=== PATIENT | male | born 1950 | race Caucasian/White ===

== ENCOUNTER 2019-05-15 19:25 | Observation (INO) | payer MEDICARE ==
--- NOTE | 2019-05-15 20:31 | RADIOLOGY REPORT (SQ) ---
EXAM DESCRIPTION: XR CHEST 1 VIEW COMPLETED DATE/TME: 05/15/2019 00:00 CLINICAL HISTORY: 68 years, Male, altered mental status COMPARISON: None. NUMBER OF VIEWS: Single TECHNIQUE: LIMITATIONS: None. FINDINGS: Cardiomediastinal silhouette is of normal size. Mild marcos fullness presumed vascular. The lungs are clear. No effusion. No pneumothorax. Right humeral postsurgical change IMPRESSION: No active intrathoracic disease copyright 2010 [employer]- All Rights Reserved
--- NOTE | 2019-05-15 20:32 | RADIOLOGY REPORT (SQ) ---
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 COMPARISON: None. TECHNIQUE: CT scan of the brain without IV contrast. This exam was performed according to our departmental dose-optimization program, which includes automated exposure control, adjustment of the mA and/or kV according to patient size and/or use of iterative reconstruction technique. FINDINGS: There is an area of encephalomalacia in the left occipital lobe and left cerebral hemisphere. No evidence of acute infarction, intracranial hemorrhage, extra-axial fluid collection, or midline shift. No air-fluid levels are seen in the paranasal sinuses to suggest acute sinusitis. No depressed skull fracture. IMPRESSION: No acute intracranial findings are seen. Please note that MRI is more sensitive for the evaluation of early infarction, and may be performed if there is high clinical concern.
[2019-05-15 20:48] LABS: ABSOLUTE BASOPHILS # (AUTO) 0.1 10^3/uL (0.0-0.2); ABSOLUTE EOSINOPHILS # (AUTO) 0.2 10^3/uL (0.0-0.6); ABSOLUTE LYMPHOCYTES (AUTO) 1.4 10^3/uL (0.5-4.7); ABSOLUTE MONOCYTES (AUTO) 0.6 10^3/uL (0.1-1.4); ABSOLUTE NEUT (AUTO) 4.9 10^3/uL (1.7-8.2); BASOPHILS % (AUTO) 1.1 % (0-2); EOSINOPHILS % (AUTO) 2.3 % (0-6); HEMATOCRIT 28.2 % (37.9-51.0); HEMOGLOBIN 9.4 g/dL (13.5-17.0); LYMPHOCYTES % (AUTO) 19.8 % (13-45); MEAN CORPUSCULAR HGB CONC 33.5 g/dL (32.0-36.0); MEAN CORPUSCULAR VOLUME 87 fl (80-97); PLATELET COUNT 305 10^3/uL (150-450); RED BLOOD COUNT 3.25 10^6/uL (4.35-5.55); RED CELL DISTRIBUTION WIDTH 14.3 % (11.5-14.0); SEGMENTED NEUTROPHILS % (AUTO) 68.8 % (42-78); TOTAL CELLS COUNTED % (AUTO) 100 %; WHITE BLOOD COUNT 7.2 10^3/uL (4.0-10.5)
[2019-05-15 20:54] LABS: INTERNATIONAL RATION (INR) 1.07; PROTHROMBIN TIME 13.9 SEC (11.4-15.4)
[2019-05-15 21:06] LABS: VENOUS BLOOD BASE EXCESS -2.1 mmol/L; VENOUS BLOOD PH 7.34 (7.30-7.42)
[2019-05-15 21:13] LABS: ALBUMIN 3.8 g/dL (3.5-5.0); ALKALINE PHOSPHATASE 112 U/L (38-126); ANION GAP 14 (5-19); ASPARTATE AMINO TRANSFERASE 21 U/L (17-59); BILIRUBIN,DIRECT 0.2 mg/dL (0.0-0.4); BILIRUBIN,TOTAL 0.2 mg/dL (0.2-1.3); BLOOD UREA NITROGEN 21 mg/dL (7-20); CALCIUM 9.6 mg/dL (8.4-10.2); CARBON DIOXIDE 23 mmol/L (22-30); CHLORIDE 102 mmol/L (98-107); GLUCOSE 114 mg/dL (75-110); POTASSIUM 4.1 mmol/L (3.6-5.0); TOTAL PROTEIN 6.8 g/dL (6.3-8.2)
[2019-05-15 21:27] LABS: APPEARANCE,URINE SLIGHTLY-CLOUDY; BILIRUBIN,URINE NEGATIVE (NEGATIVE); COLOR,URINE YELLOW; GLUCOSE, URINE NEGATIVE (NEGATIVE); KETONES,URINE NEGATIVE (NEGATIVE); PROTEIN,URINE 100 mg/dL (NEGATIVE); URINE SPECIFIC GRAVITY 1.017; UROBILINOGEN,URINE NEGATIVE mg/dL (<2.0)
[2019-05-15] MEDS ORDERED: NORMAL SALINE 1000 ML 1,000 ML IV ONE (23:51)
[2019-05-16] MEDS: NORMAL SALINE 1000 ML 1,000 ML IV PRN ×2 (00:29→00:30)
--- NOTE | 2019-05-16 03:30 | ER Document Report ---
Entered by JOAQUIN YEE SCRIBE 05/15/19 [id number] Acting as scribe for:ESA SHAH MD ED General - General Chief Complaint: General Weakness Stated Complaint: LOWER EXTREMITY WEAKNESS Time Seen by Provider: 05/15/19 20:59 Primary Care Provider: RIGO WELDON PA-C [Primary Care Provider] - Follow up as needed Information source: Patient, Relative Notes: 68-year-old male reports to the emergency department by EMS with generalized weakness. Patient recalled today when he was taking his medication he noticed a pill on the floor. When he bent over to pickup driver the pill, he lost his balence and fell over. Patient reports no injury, loss of consciousness due to the fall. Patient reports that this is when he started to "feel groggy".Patient states he took pill that was on the floor. Patient's relative did not see this incident but patient told her about it after the fall happened. Patient's relative stated that about 4 hours prior to arrival, she noticed that patient was more "fidgety" and did not seem like himself. Relative stated that patient was worsening and could not walk, form a sentence and had slurred speech. Relative said that patient's blood sugar was 287 when checked and he administered 5 units of insulin. Relative reported that by the time EMS arrived, patients blood sugar was at 127. Patient stated that when he was leaving his home to come to the ED, he saw "a dog run off" in the corner of his eye. Relative also reported that patient said that he saw a "4 foot wall in front of him" when there was not. Patient denies headache. TRAVEL OUTSIDE OF THE [place] IN LAST 30 DAYS: No - Related Data Allergies/Adverse Reactions: Penicillins Allergy (Verified 05/15/19 19:47) Past Medical History - General Information source: Patient, Relative - Social History Smoking Status: Current Every Day Smoker Cigarette use (# per day): Yes Chew tobacco use (# tins/day): No Frequency of alcohol use: Rare Drug Abuse: None Lives with: Family Family History: Reviewed & Not Pertinent Patient has suicidal ideation: No Patient has homicidal ideation: No - Past Medical History Cardiac Medical History: Reports: Hx Hypercholesterolemia, Hx Hypertension Endocrine Medical History: Reports: Hx Diabetes Mellitus Type 1 Psychiatric Medical History: Reports: Hx Depression Surgical Hx: Negative Review of Systems - Review of Systems Constitutional: See HPI, Weakness EENT: No symptoms reported Cardiovascular: No symptoms reported Respiratory: No symptoms reported Gastrointestinal: No symptoms reported Genitourinary: No symptoms reported Male Genitourinary: No symptoms reported Musculoskeletal: No symptoms reported Skin: No symptoms reported Hematologic/Lymphatic: No symptoms reported Neurological/Psychological: See HPI, Hallucinations, Tremor. denies: Headaches -: Yes All other systems reviewed and negative Physical Exam - Vital signs Vitals: Temp Pulse Resp BP Pulse Ox 98.2 F 97 26 H 93/64 L 95 05/15/19 19:25 05/15/19 19:25 05/15/19 19:25 05/15/19 19:25 05/15/19 19:25 - Notes Notes: Physical Exam: General: Alert, appears well. HEENT: Normocephalic. Atraumatic. PERRL. Extraocular movements intact. Oropharynx clear. Diminished gag reflex. Neck: Supple. Non-tender. Respiratory: No respiratory distress. Clear and equal breath sounds bilaterally. Cardiovascular: Regular rate and rhythm. Abdominal: Normal Inspection. Non-tender. No distension. Normal Bowel Sounds. Back: No gross abnormalities. Extremities: Moves all four extremities. Upper extremities: Normal inspection. Normal ROM. Lower extremities: Normal inspection. No edema. Normal ROM. Neurological: Normal cognition. AAOx4. Normal speech. Psychological: Normal affect. Normal Mood. Skin: Warm. Dry. Normal color. Course - Re-evaluation Re-evalutation: 05/16/19 03:20 Patient resting comfortably not showing any signs of distress. Patient sleeping in room at this time. Patient is easily aroused and speech is clear oriented to place and time patient reports that he feels fine at this time. 05/16/19 03:21 Patient presented with an elevated lactic acid of 4.0 currently the trend of this elevated lactic acid has decreased down to 2.8. Another lab is pending in the lab as we speak. Once his lactic acid is down to 2.0 patient will be discharged home patient is severely dehydrated and I think suffered some acute renal insult as a result with his creatinine up to 1.74. A repeat creatinine is also pending at this time. - Vital Signs Vital signs: Temp Pulse Resp BP Pulse Ox 98.2 F 94 21 H 118/68 97 05/15/19 19:25 05/15/19 20:11 05/15/19 20:30 05/15/19 20:30 05/15/19 20:30 - Laboratory Result Diagrams: 05/15/19 20:35 05/15/19 20:35 Laboratory results interpreted by me: 05/15/19 05/15/19 05/15/19 20:01 20:35 20:35 RBC 3.25 L Hgb 9.4 L Hct 28.2 L RDW 14.3 H BUN Creatinine Est GFR ( Amer) Est GFR (MDRD) Non-Af Glucose POC Glucose 144 H Lactic Acid 4.0 H Urine Protein Leukocyte Esterase Rfl 05/15/19 05/15/19 05/15/19 20:35 21:00 22:28 RBC Hgb Hct RDW BUN 21 H Creatinine 1.74 H Est GFR ( Amer) 48 L Est GFR (MDRD) Non-Af 39 L Glucose 114 H POC Glucose Lactic Acid 3.1 H Urine Protein 100 H Leukocyte Esterase Rfl TRACE H 05/15/19 23:00 RBC Hgb Hct RDW BUN Creatinine Est GFR ( Amer) Est GFR (MDRD) Non-Af Glucose POC Glucose Lactic Acid 2.8 H Urine Protein Leukocyte Esterase Rfl - EKG Interpretation by Me Additional EKG results interpreted by me: 05/16/19 03:22 Twelve-lead EKG done 05/15/20192006 shows normal sinus rhythm rate of 92 no acute changes Discharge - Discharge Clinical Impression: Acute alteration in mental status, Acute kidney injury, Dehydration Condition: Stable Disposition: HOME, SELF-CARE Additional Instructions: Dehydration Dehydration can result from vomiting or diarrhea, fever, or decreased intake of fluids. If severe, hospitalization and intravenous fluids may be required. Most cases are treated at home with fluids by mouth. For the next 24 hours, drink lots of clear fluids. In mild cases, this can be soda pop or sports drinks. For more severe dehydration, the doctor may recommend special fluids such as Pedialyte or Lytren. Try to get three liters (3 quarts) of fluid per day. If vomiting occurs, continue to drink the fluids frequently (every 15 to 20 minutes), but in small amounts (one or two ounces). Depending on the type of dehydration, the doctor may prescribe antinausea medicine or potassium replacements. Call the doctor or return for re-examination if you become progressively weak, vomit repeatedly, or have other new symptoms. Altered Mental Status An altered mental status is a change in the normal functioning of the brain. This alteration of function can range from minor decreased brain function with some forgetfulness and confusion to complete loss of consciousness and coma. There are many possible causes of an altered mental status and include brain injuries such as trauma or strokes, problems with oxygen supply to the brain, fever and infections of the brain and/or elsewhere in the body, metabolic abnormalities such as low or high blood sugar, overdoses or excessive medication ingestion, and mental and psychiatric illnesses. Sometimes the altered mental status resolves and a definite cause is not determined. If a cause for your altered mental status was found, it has likely been corrected. Your evaluation has not shown any condition that requires that you be admitted to the hospital. It is believed that you are safe to leave and return to your home. If you have a return of your symptoms, you should return for re-evaluation. Today you had a change in mental status with may be related to the fact that you took an extra pill that had fallen on the floor. Such medications such as lorazepam can cause 1 to have an altered mental status and balance changes. Your symptoms seem to improved while in the emergency department today and you have currently oriented to person place and time and not showing any neurological problems at this time. Currently you have been dehydrated to a great degree in the past 24 hours and your urine and kidney function describes that with an elevated creatinine. And your urine was quite concentrated on arrival. You have received IV fluids during your hospital stay in the emergency department and a repeat study of your kidney function is pending at the time of this dictation. I do not believe you please follow-up with your primary care physician for further evaluation. Suffered a stroke today Referrals: RIGO WELDON PA-C [Primary Care Provider] - Follow up as needed I personally performed the services described in the documentation, reviewed and edited the documentation which was dictated to the scribe in my presence, and it accurately records my words and actions.
[2019-05-16 03:39] LABS: ALBUMIN 3.3 g/dL (3.5-5.0); ALKALINE PHOSPHATASE 104 U/L (38-126); ANION GAP 7 (5-19); ASPARTATE AMINO TRANSFERASE 22 U/L (17-59); BILIRUBIN,DIRECT 0.1 mg/dL (0.0-0.4); BILIRUBIN,TOTAL 0.2 mg/dL (0.2-1.3); BLOOD UREA NITROGEN 17 mg/dL (7-20); CALCIUM 8.4 mg/dL (8.4-10.2); CARBON DIOXIDE 22 mmol/L (22-30); CHLORIDE 113 mmol/L (98-107); GLUCOSE 86 mg/dL (75-110); POTASSIUM 4.2 mmol/L (3.6-5.0); TOTAL PROTEIN 5.8 g/dL (6.3-8.2)
[2019-05-16] MEDS ORDERED: MAG HYDROX/AL HYDROX/SIMETH SUSP 30 ML UDCUP PO PRN (04:27)
[2019-05-16] MEDS ORDERED: PROMETHAZINE HCL INJ 25 MG/1 ML VIAL IV PRN (04:27)
[2019-05-16] MEDS ORDERED: RINGERS SOLUTION,LACTATED 1,000 ML IV PRN ×2 (04:27→12:30)
[2019-05-16] MEDS ORDERED: MAGNESIUM HYDROXIDE SUSP 30 ML UDCUP PO PRN (04:27)
[2019-05-16] MEDS ORDERED: ACETAMINOPHEN 325 MG TABLET PO PRN (04:31)
[2019-05-16] MEDS ORDERED: LORAZEPAM INJ 2 MG/1 ML VIAL IV PRN ×2 (04:31→09:49)
[2019-05-16] MEDS ORDERED: SCOPOLAMINE HYDROBROMIDE 1.5 MG PATCH.TD72 TD ONE (04:31)
[2019-05-16] MEDS ORDERED: METOPROLOL TARTRATE PF/INJ 5 MG/5 ML SDV IV PRN (04:31)
[2019-05-16] MEDS ORDERED: DEXTROSE 50%-WATER 25 GM/50 ML DISP.SYRIN IV PRN ×2 (04:36)
[2019-05-16] MEDS ORDERED: GLUCAGON,HUMAN RECOMB 1 MG INJ IM PRN (04:36)
[2019-05-16] MEDS ORDERED: DEXTROSE 40% GEL 15 GM TUBE PO PRN ×2 (04:36)
[2019-05-16] MEDS ORDERED: BUPROPION HCL 100 MG TABLET ONE (05:43)
[2019-05-16] MEDS: PANTOPRAZOLE SODIUM 40 MG TABLET.DR PO SCH (05:44)
[2019-05-16] MEDS: HEPARIN SOD (PORCINE) 5,000 UNIT/ML 1 ML VIAL SUBCUT SCH ×3 (05:44→21:57)
[2019-05-16] MEDS: GABAPENTIN 300 MG CAPSULE PO SCH ×3 (05:44→21:58)
[2019-05-16] MEDS ORDERED: SCOPOLAMINE HYDROBROMIDE 1.5 MG PATCH.TD72 ONE (05:45)
[2019-05-16] MEDS: BUPROPION HCL 100 MG TABLET PO SCH ×3 (05:50→21:57)
--- NOTE | 2019-05-16 07:09 | PDOC H&P ---
History of Present Illness Admission Date/PCP: 05/16/2019 04:06 RIGO WELDON PA-C Patient complains of: Altered mental status History of Present Illness: DIOGO DE LA ROSA is a 68 year old male who presents the emergency room via EMS with altered mental status. Patient was at home and was taking his medication as usual on the morning of 05/15/2019 when he apparently dropped a pill and as he bent over to pick it up he lost his balance resulting in a fall without apparent injury or loss of consciousness. Over the course of the next several hours the patient complained only of feeling groggy. His family noticed that he was not acting like himself becoming distracted, having difficulty walking, slurring his speech and having difficulty forming sentences. He also apparently saw a dog t hat was not there and a wall in front of him that was not there. In the emergency room he was found to have a negative CT scan of the head but was noted to have acute kidney injury which responded well to IV fluids. He has lactic acid was also initially elevated but had returned to a normal value with rehydration. Patient's mental status was noted to be at his baseline however he continued to feel "wobbly" when he sat up or stood up. He was subsequently admitted to the hospital on observation status for further evaluation and treatment. Past Medical History Cardiac Medical History: Reports: Hyperlipidema, Hypertension, Peripheral Vascular Disease Denies: Atrial Fibrillation, Congestive Heart Failure, Coronary Artery Disease, Myocardial Infarction Pulmonary Medical History: Denies: Asthma, Chronic Obstructive Pulmonary Disease (COPD) EENT Medical History: Denies: Cataracts, Ears - Hearing aids Neurological Medical History: Denies: Hemorrhagic CVA, Ischemic CVA, Seizures Endocrine Medical History: Reports: Diabetes Mellitus Type 2 Denies: Diabetes Mellitus Type 1, Hyperthyroidism, Hypothyroidism Renal/ Medical History: Denies: Chronic Kidney Disease, Nephrolithiasis Malignancy Medical History: Reports: None GI Medical History: Denies: Cirrhosis, Crohn's Disease, Gastroesophageal Reflux Disease, Hepatitis, Peptic Ulcer Disease, Ulcerative Colitis Musculoskeltal Medical History: Denies: Arthritis, Gout Skin Medical History: Denies: Eczema, Psoriasis Psychiatric Medical History: Reports: Depression, Tobacco Dependency Denies: Alcohol Dependency, Substance Abuse Traumatic Medical History: Reports: None Hematology: Denies: Anemia, Bleeding Tendencies Infectious Medical History: Reports: None Social History Information Source: Patient Lives with: Family Smoking Status: Current Every Day Smoker Electronic Cigarette use?: No Frequency of Alcohol Use: None Hx Recreational Drug Use: No Drugs: None Hx Prescription Drug Abuse: No - Advance Directive Resuscitation Status: Full Code Surrogate healthcare decision maker:: Mabel Solis Family History Family History: denies: CAD, DM, Hypertension, Malignancy Parental Family History Reviewed: Yes Children Family History Reviewed: No Sibling(s) Family History Reviewed.: Yes Medication/Allergy Home Medications: Aspirin [Aspirin 325 mg Tablet] 325 mg PO DAILY 05/15/19 Atorvastatin Calcium [Lipitor 40 mg Tablet] 40 mg PO QHS 05/15/19 Bupropion HCl [Bupropion Xl] 300 mg PO DAILY 05/15/19 Cilostazol [Pletal 100 Mg Tablet] 100 mg PO BID 05/15/19 Gabapentin [Neurontin 300 mg Capsule] 300 mg PO Q8 05/15/19 Glipizide [Glucotrol] 10 mg PO BID 05/15/19 Lorazepam [Ativan 1 mg Tablet] 2 mg PO QHS 05/15/19 Losartan Potassium 100 mg PO DAILY 05/15/19 Metformin HCl 1,000 mg PO BID 05/15/19 Paroxetine HCl [Paxil] 20 mg PO BID 05/15/19 Sitagliptin Phosphate [Januvia 50 mg Tablet] 100 mg PO DAILY 05/15/19 Allergies/Adverse Reactions: Penicillins Allergy (Verified 05/15/19 19:47) Review of Systems Constitutional: ABSENT: chills, fever(s) Eyes: ABSENT: visual disturbances, other - Eye pain Ears: ABSENT: hearing changes, other - Ear pain Nose, Mouth, and Throat: ABSENT: mouth pain, sore throat Cardiovascular: ABSENT: chest pain, palpitations Respiratory: ABSENT: cough, dyspnea Gastrointestinal: ABSENT: abdominal pain, constipation, diarrhea, nausea, vomiting Genitourinary: ABSENT: dysuria, hematuria Musculoskeletal: ABSENT: back pain, joint swelling Integumentary: ABSENT: pruritus, rash Neurological: PRESENT: as per HPI, abnormal gait, abnormal speech, confusion, lack of coordination. ABSENT: convulsions, focal weakness, memory loss, syncope Psychiatric: ABSENT: anxiety, depression Endocrine: ABSENT: cold intolerance, heat intolerance, polydipsia, polyphagia, polyuria Hematologic/Lymphatic: ABSENT: easy bleeding, easy bruising Allergic/Immunologic: ABSENT: seasonal rhinorrhea Physical Exam Vital Signs: Temp Pulse Resp BP Pulse Ox 98.2 F 94 21 H 118/68 97 05/15/19 19:25 05/15/19 20:11 05/15/19 20:30 05/15/19 20:30 05/15/19 20:30 Intake & Output 05/14/19 05/15/19 05/16/19 23:59 23:59 23:59 Intake Total 1017 Balance 1017 Weight 74.7 kg General appearance: PRESENT: no acute distress, cooperative Head exam: PRESENT: atraumatic, normocephalic Eye exam: PRESENT: conjunctiva pink, nystagmus - Lateral nystagmus. ABSENT: conjunctival injection, scleral icterus Ear exam: PRESENT: normal external ear exam. ABSENT: bleeding, drainage Mouth exam: PRESENT: dry mucosa, neck supple Neck exam: ABSENT: thyromegaly, tracheal deviation Respiratory exam: PRESENT: clear to auscultation abdulaziz, symmetrical, unlabored Cardiovascular exam: PRESENT: RRR. ABSENT: clicks, gallop, rubs Pulses: PRESENT: normal radial pulses, normal dorsalis pedis pul Vascular exam: PRESENT: normal capillary refill. ABSENT: pallor GI/Abdominal exam: PRESENT: normal bowel sounds, soft Rectal exam: PRESENT: deferred Extremities exam: ABSENT: joint swelling, pedal edema Musculoskeletal exam: ABSENT: deformity, dislocation Neurological exam: PRESENT: alert, oriented to person, oriented to place, oriented to time, oriented to situation, other - Lateral nystagmus noted on visual testing Psychiatric exam: PRESENT: appropriate affect, normal mood Skin exam: PRESENT: dry, intact, warm. ABSENT: jaundice, rash, urticaria Results Laboratory Results: 05/15/19 20:35 05/16/19 02:50 05/15/19 05/15/19 05/15/19 20:35 20:35 20:35 WBC 7.2 RBC 3.25 L Hgb 9.4 L Hct 28.2 L MCV 87 MCH 29.0 MCHC 33.5 RDW 14.3 H Plt Count 305 Seg Neutrophils % 68.8 VBG pH VBG pCO2 VBG HCO3 VBG Base Excess Sodium 138.8 Potassium 4.1 Chloride 102 Carbon Dioxide 23 Anion Gap 14 BUN 21 H Creatinine 1.74 H Est GFR ( Amer) 48 L Glucose 114 H Lactic Acid 4.0 H Calcium 9.6 Total Bilirubin 0.2 AST 21 Alkaline Phosphatase 112 Total Protein 6.8 Albumin 3.8 Urine Color Urine Appearance Urine pH Ur Specific [place] Urine Protein Urine Glucose (UA) Urine Ketones Urine Blood Urine RBC (Auto) 05/15/19 05/15/19 05/15/19 20:35 21:00 22:28 WBC RBC Hgb Hct MCV MCH MCHC RDW Plt Count Seg Neutrophils % VBG pH 7.34 VBG pCO2 46.0 VBG HCO3 24.0 VBG Base Excess -2.1 Sodium Potassium Chloride Carbon Dioxide Anion Gap BUN Creatinine Est GFR ( Amer) Glucose Lactic Acid 3.1 H Calcium Total Bilirubin AST Alkaline Phosphatase Total Protein Albumin Urine Color YELLOW Urine Appearance SLIGHTLY-CLOUDY Urine pH 5.0 Ur Specific [place] 1.017 Urine Protein 100 H Urine Glucose (UA) NEGATIVE Urine Ketones NEGATIVE Urine Blood NEGATIVE Urine RBC (Auto) 3 05/15/19 05/16/19 05/16/19 23:00 02:50 02:50 WBC RBC Hgb Hct MCV MCH MCHC RDW Plt Count Seg Neutrophils % VBG pH VBG pCO2 VBG HCO3 VBG Base Excess Sodium 141.5 Potassium 4.2 Chloride 113 H Carbon Dioxide 22 Anion Gap 7 BUN 17 Creatinine 1.25 Est GFR ( Amer) > 60 Glucose 86 Lactic Acid 2.8 H 2.1 Calcium 8.4 Total Bilirubin 0.2 AST 22 Alkaline Phosphatase 104 Total Protein 5.8 L Albumin 3.3 L Urine Color Urine Appearance Urine pH Ur Specific [place] Urine Protein Urine Glucose (UA) Urine Ketones Urine Blood Urine RBC (Auto) Impressions: Chest X-Ray 05/15/19 00:00 IMPRESSION: No active intrathoracic disease copyright 2011 [employer]- All Rights Reserved Head CT 05/15/19 00:00 IMPRESSION: No acute intracranial findings are seen. Please note that MRI is more sensitive for the evaluation of early infarction, and may be performed if there is high clinical concern. Assessment and Plan - Diagnosis (1) Acute alteration in mental status Is this a current diagnosis for this admission?: Yes (2) Acute labyrinthitis Qualifiers: Laterality: unspecified laterality Qualified Code(s): H83.09 - Labyrinthi tis, unspecified ear Is this a current diagnosis for this admission?: Yes (3) Acute kidney injury Is this a current diagnosis for this admission?: Yes (4) Diabetes mellitus type 2 in nonobese Is this a current diagnosis for this admission?: Yes (5) Hypertension Qualifiers: Hypertension type: essential hypertension Qualified Code(s): I10 - Essential (primary) hypertension Is this a current diagnosis for this admission?: Yes (6) Hyperlipidemia Qualifiers: Hyperlipidemia type: unspecified Qualified Code(s): E78.5 - Hyperlipidemia, unspecified Is this a current diagnosis for this admission?: Yes (7) Tobacco dependence Is this a current diagnosis for this admission?: Yes - Plan Summary Summary: Patient will be admitted to the medical floor on observation status where he received routine supportive and symptomatic cares. He will be continued on IV fluids over the next 12 to 24 hours. He will have an MRI of his brain to evaluate for possible stroke. Serial laboratory assessments will be obtained including CBC, metabolic profile and magnesium levels as appropriate for reassessments. Before meals and at bedtime Accu-Cheks will be obtained with sliding scale insulin for hyperglycemia and a hypoglycemic protocol in place. Hemoglobin A1c will be assessed. Neurochecks will be performed every 4 hours. Patient received Ativan 0.5 mg IV every 4 hours as needed for anxiety. Smoking cessation is advised and counseled briefly at the bedside. - Time Time Spent with patient: 15-24 minutes Smoking Cessation Education: 3 to 10 minutes Medications reviewed and adjusted accordingly: Yes - Inpatient Certification Based on my medical assessment, after consideration of the patient's comorbidities, presenting symptoms, or acuity I expect that the services needed warrant INPATIENT care.: No I certify that my determination is in accordance with my understanding of Medicare's requirements for reasonable and necessary INPATIENT services [42 CFR 412.3e].: No Medical Necessity: Need For IV Fluids, Need for Neurological Checks
[2019-05-16] MEDS: INSULIN LISPRO 100 UNIT/ML 3 ML VIAL SUBCUT SCH ×4 (07:46→22:54)
[2019-05-16] MEDS: METFORMIN HCL 500 MG TABLET PO SCH ×2 (08:48→18:06)
[2019-05-16] MEDS: GLIPIZIDE 10 MG TABLET PO SCH ×2 (09:43→18:07)
[2019-05-16] MEDS: PAROXETINE HCL 20 MG TABLET PO SCH ×2 (09:43→18:14)
[2019-05-16] MEDS: LOSARTAN POTASSIUM 50 MG TABLET PO SCH (09:43)
[2019-05-16] MEDS: DOCUSATE SODIUM 100 MG CAPSULE PO SCH ×2 (09:43→18:29)
[2019-05-16] MEDS: SITAGLIPTIN PHOSPHATE 50 MG TABLET PO SCH (09:43)
[2019-05-16] MEDS: ASPIRIN 325 MG TABLET PO SCH (09:43)
[2019-05-16] MEDS: CILOSTAZOL 100 MG TABLET PO SCH ×2 (09:59→18:07)
--- NOTE | 2019-05-16 12:07 | RADIOLOGY REPORT (SQ) ---
EXAM DESCRIPTION: MRI HEAD WITHOUT COMPLETED DATE/TIME: 05/16/2019 11:32 am REASON FOR STUDY: Acute difficulty with coordination COMPARISON: CT from yesterday. TECHNIQUE: Multiplanar imaging includes non-contrasted T1, T2, FLAIR, and diffusion with ADC map seq uences. Images stored on PACS. LIMITATIONS: Most of the sequences are limited by motion. This is up to moderate on many of the yasmeen ges which limits. FINDINGS: ANATOMY: No anomalies. Normal vascular flow voids. Pituitary fossa normal. CSF SPACES: Mild atrophy may be present. No gross extra-axial hemorrhage or mass. CEREBRUM: Encephalomalacia in the left occipital lobe. No gross parenchymal hemorrhage. POSTERIOR FOSSA: Encephalomalacia in the left kishore cerebellum. IAC's and mastoid air cells look norm al. DIFFUSION IMAGING: Negative for acute or sub-acute infarction. ORBITS: No masses. Globes normal. PARANASAL SINUSES: No fluid levels. Mucosa normal. OTHER: No other significant finding. IMPRESSION: 1. Chronic appearing changes. 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 2. No acute infarct or other acute abnormality allowing for limiting motion. EVIDENCE OF ACUTE STROKE: NO. TECHNICAL DOCUMENTATION: JOB ID: [id number] 2010 [employer]- All Rights Reserved Reading location - IP/workstation name: [email or web address]
[2019-05-16] MEDS: HYDRALAZINE HCL INJ/PF 20 MG/1 ML SDV IV PRN (15:51)
[2019-05-16] MEDS: ATORVASTATIN CALCIUM 40 MG TABLET PO SCH (21:57)
[2019-05-16] MEDS: LORAZEPAM 1 MG TABLET PO SCH (21:57)
--- NOTE | 2019-05-16 22:39 | EKG REPORT ---
SEVERITY:- NORMAL ECG - SINUS RHYTHM : Confirmed by: Mary Carrillo 16-May-2019 22:38:21
[2019-05-17] MEDS: HYDRALAZINE HCL INJ/PF 20 MG/1 ML SDV IV PRN (01:44)
[2019-05-17 06:21] LABS: HEMATOCRIT 27.9 % (37.9-51.0); HEMOGLOBIN 9.3 g/dL (13.5-17.0); MEAN CORPUSCULAR HEMOGLOBIN 28.8 pg (27.0-33.4); MEAN CORPUSCULAR HGB CONC 33.5 g/dL (32.0-36.0); MEAN CORPUSCULAR VOLUME 86 fl (80-97); PLATELET COUNT 311 10^3/uL (150-450); RED BLOOD COUNT 3.24 10^6/uL (4.35-5.55); RED CELL DISTRIBUTION WIDTH 14.4 % (11.5-14.0); WHITE BLOOD COUNT 7.3 10^3/uL (4.0-10.5)
[2019-05-17 06:26] LABS: BLOOD UREA NITROGEN 14 mg/dL (7-20); CALCIUM 8.6 mg/dL (8.4-10.2); GLUCOSE 89 mg/dL (75-110)
[2019-05-17 06:27] LABS: ANION GAP 9 (5-19); CARBON DIOXIDE 24 mmol/L (22-30); CHLORIDE 107 mmol/L (98-107); CHOLESTEROL 137.99 mg/dL (0-200); DIRECT LDL 57 mg/dL (<100); TRIGLYCERIDES 194 mg/dL (<150); VLDL CHOLESTEROL 38.8 mg/dL (10-31)
[2019-05-17] MEDS: GABAPENTIN 300 MG CAPSULE PO SCH ×3 (06:28→21:20)
[2019-05-17] MEDS: HEPARIN SOD (PORCINE) 5,000 UNIT/ML 1 ML VIAL SUBCUT SCH ×3 (06:28→21:20)
[2019-05-17] MEDS: BUPROPION HCL 100 MG TABLET PO SCH ×3 (06:29→21:20)
[2019-05-17] MEDS: PANTOPRAZOLE SODIUM 40 MG TABLET.DR PO SCH (06:29)
[2019-05-17] MEDS: METFORMIN HCL 500 MG TABLET PO SCH ×3 (08:40→17:04)
[2019-05-17] MEDS: INSULIN LISPRO 100 UNIT/ML 3 ML VIAL SUBCUT SCH ×4 (08:40→21:20)
[2019-05-17] MEDS: LOSARTAN POTASSIUM 50 MG TABLET PO SCH (09:48)
[2019-05-17] MEDS: SITAGLIPTIN PHOSPHATE 50 MG TABLET PO SCH (09:49)
[2019-05-17] MEDS: ASPIRIN 325 MG TABLET PO SCH (09:49)
[2019-05-17] MEDS: GLIPIZIDE 10 MG TABLET PO SCH ×2 (09:49→17:05)
[2019-05-17] MEDS: DOCUSATE SODIUM 100 MG CAPSULE PO SCH ×2 (09:50→17:05)
[2019-05-17] MEDS: CILOSTAZOL 100 MG TABLET PO SCH ×2 (09:51→17:05)
[2019-05-17] MEDS: PAROXETINE HCL 20 MG TABLET PO SCH ×2 (09:55→17:05)
--- NOTE | 2019-05-17 17:14 | PDOC PROGRESS REPORT ---
Subjective Progress Note for:: 05/17/19 Subjective:: Patient seen this morning. He states that he feels well and would like to go home however it appears he will need home PT as he needs assistance with ambulation Reason For Visit: ACUTE KIDNEY INJURY,ALTERED MENTAL STATUS Physical Exam Vital Signs: Temp Pulse Resp BP Pulse Ox 97.7 F 98 18 100/53 L 96 05/17/19 11:56 05/17/19 11:56 05/17/19 11:56 05/17/19 11:56 05/17/19 11:56 Intake & Output 05/16/19 05/17/19 05/18/19 06:59 06:59 06:59 Intake Total 2016 2801 Output Total 1300 Balance 2016 1501 Weight 74.7 kg 73.3 kg General appearance: PRESENT: no acute distress, well-developed, well-nourished Head exam: PRESENT: atraumatic, normocephalic Eye exam: PRESENT: conjunctiva pink, PERRLA. ABSENT: scleral icterus Ear exam: PRESENT: normal external ear exam Mouth exam: PRESENT: moist Neck exam: ABSENT: carotid bruit, JVD, lymphadenopathy, thyromegaly Respiratory exam: ABSENT: rales, rhonchi, wheezes Cardiovascular exam: PRESENT: RRR, +S1, +S2. ABSENT: diastolic murmur, rubs, systolic murmur Vascular exam: PRESENT: normal capillary refill GI/Abdominal exam: PRESENT: normal bowel sounds, soft. ABSENT: distended, guarding, mass, organolmegaly, rebound, tenderness Rectal exam: PRESENT: deferred Extremities exam: PRESENT: full ROM. ABSENT: calf tenderness, clubbing, pedal edema Neurological exam: PRESENT: alert, awake, oriented to person, oriented to place, oriented to time, oriented to situation. ABSENT: motor sensory deficit Psychiatric exam: PRESENT: appropriate affect. ABSENT: homicidal ideation, suicidal ideation Skin exam: PRESENT: dry, intact, warm. ABSENT: cyanosis, rash Results Laboratory Results: 05/17/19 04:03 05/17/19 04:03 05/17/19 05/17/19 05/17/19 04:03 04:03 04:03 WBC 7.3 RBC 3.24 L Hgb 9.3 L Hct 27.9 L MCV 86 MCH 28.8 MCHC 33.5 RDW 14.4 H Plt Count 311 Sodium 139.8 Potassium 4.0 Chloride 107 Carbon Dioxide 24 Anion Gap 9 BUN 14 Creatinine 1.09 Est GFR ( Amer) > 60 Glucose 89 Calcium 8.6 Magnesium 1.3 L Triglycerides 194 H Cholesterol 137.99 LDL Cholesterol Direct 57 VLDL Cholesterol 38.8 H HDL Cholesterol 64 TSH 1.18 05/15/19 21:00 Clean Catch Midstream Urine Culture - Final NO GROWTH 2 DAYS Impressions: Chest X-Ray 05/15/19 00:00 IMPRESSION: No active intrathoracic disease copyright 2011 [employer]- All Rights Reserved Head CT 05/15/19 00:00 IMPRESSION: No acute intracranial findings are seen. Please note that MRI is more sensitive for the evaluation of early infarction, and may be performed if there is high clinical concern. Head MRI 05/16/19 00:00 IMPRESSION: 1. Chronic appearing changes. 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 2. No acute infarct or other acute abnormality allowing for limiting motion. EVIDENCE OF ACUTE STROKE: NO. Assessment and Plan - Diagnosis (1) Diabetes mellitus type 2 in nonobese Is this a current diagnosis for this admission?: Yes Plan: Continue with sliding scale insulin (2) Hyperlipidemia Qualifiers: Hyperlipidemia type: unspecified Qualified Code(s): E78.5 - Hyperlipidemia, unspecified Is this a current diagnosis for this admission?: Yes Plan: Continue his home medications (3) Hypertension Qualifiers: Hypertension type: essential hypertension Qualified Code(s): I10 - Essential (primary) hypertension Is this a current diagnosis for this admission?: Yes (4) Tobacco dependence Is this a current diagnosis for this admission?: Yes - Plan Summary Summary: MRI negative, CT negative And has been hemodynamically stable - Time Time Spent with patient: 15-24 minutes Medications reviewed and adjusted accordingly: Yes Anticipated discharge: Home with Homehealth Within: within 24 hours
[2019-05-17] MEDS: LORAZEPAM 1 MG TABLET PO SCH (21:20)
[2019-05-17] MEDS: ATORVASTATIN CALCIUM 40 MG TABLET PO SCH (21:20)
[2019-05-18] MEDS: GABAPENTIN 300 MG CAPSULE PO SCH (05:08)
[2019-05-18] MEDS: HEPARIN SOD (PORCINE) 5,000 UNIT/ML 1 ML VIAL SUBCUT SCH (05:08)
[2019-05-18] MEDS: PANTOPRAZOLE SODIUM 40 MG TABLET.DR PO SCH (05:08)
[2019-05-18] MEDS: BUPROPION HCL 100 MG TABLET PO SCH (05:08)
[2019-05-18] MEDS: INSULIN LISPRO 100 UNIT/ML 3 ML VIAL SUBCUT SCH (09:24)
[2019-05-18] MEDS: ASPIRIN 325 MG TABLET PO SCH ×2 (09:28→09:44)
[2019-05-18] MEDS: METFORMIN HCL 500 MG TABLET PO SCH ×2 (09:28→09:45)
[2019-05-18] MEDS: SITAGLIPTIN PHOSPHATE 50 MG TABLET PO SCH ×2 (09:28→09:44)
[2019-05-18] MEDS: DOCUSATE SODIUM 100 MG CAPSULE PO SCH (09:29)
[2019-05-18] MEDS: LOSARTAN POTASSIUM 50 MG TABLET PO SCH ×2 (09:29→09:45)
[2019-05-18] MEDS: PAROXETINE HCL 20 MG TABLET PO SCH ×2 (09:29→09:45)
[2019-05-18] MEDS: GLIPIZIDE 10 MG TABLET PO SCH ×2 (09:29→09:45)
[2019-05-18] MEDS: CILOSTAZOL 100 MG TABLET PO SCH ×2 (09:30→09:45)
--- NOTE | 2019-05-18 12:31 | PDOC DISCHARGE SUMMARY ---
Impression - Admit/DC Date/PCP Admission Date/Primary Care Provider: 05/16/19 04:34 RIGO WELDON PA-C Discharge Date: 05/18/19 - Discharge Diagnosis (1) Diabetes mellitus type 2 in nonobese Is this a current diagnosis for this admission?: Yes (2) Hyperlipidemia Is this a current diagnosis for this admission?: Yes (3) Hypertension Is this a current diagnosis for this admission?: Yes (4) Tobacco dependence Is this a current diagnosis for this admission?: Yes - Additional Information Resuscitation Status: Full Code Discharge Diet: Cardiac Discharge Activity: Activity As Tolerated Referrals: RIGO WELDON PA-C [Primary Care Provider] - 05/28/19 Home Medications: Aspirin [Aspirin 325 mg Tablet] 325 mg PO DAILY 05/15/19 Atorvastatin Calcium [Lipitor 40 mg Tablet] 40 mg PO QHS 05/15/19 Bupropion HCl [Bupropion Xl] 300 mg PO DAILY 05/15/19 Cilostazol [Pletal 100 mg Tablet] 100 mg PO BID 05/15/19 Gabapentin [Neurontin 300 mg Capsule] 300 mg PO Q8 05/15/19 Glipizide [Glucotrol] 10 mg PO BID 05/15/19 Lorazepam [Ativan 1 mg Tablet] 2 mg PO QHS 05/15/19 Losartan Potassium 100 mg PO DAILY 05/15/19 Metformin HCl 1,000 mg PO BID 05/15/19 Paroxetine HCl [Paxil] 20 mg PO BID 05/15/19 Sitagliptin Phosphate [Januvia 50 mg Tablet] 100 mg PO DAILY 05/15/19 Insulin Lispro [Humalog Insulin (Lispro) 100 unit/mL] 0 unit SUBCUT .SLD SCALE 05/16/19 Insulin Glargine,Hum.rec.anlog [Lantus Insulin 100 Unit/1 ml 10 ml] 10 unit SQ QHS #0 05/18/19 History of Present Illiness History of Present Illness: DIOGO DE LA ROSA is a 68 year old male who presents the emergency room via EMS with altered mental status. Patient was at home and was taking his medication as usual on the morning of 05/15/2019 when he apparently dropped a pill and as he bent over to pick it up he lost his balance resulting in a fall without apparent injury or loss of consciousness. Over the course of the next several hours the patient complained only of feeling groggy. His family noticed that he was not acting like himself becoming distracted, having difficulty walking, slurring his speech and having difficulty forming sentences. He also apparently saw a dog that was not there and a wall in front of him that was not there. In the emergency room he was found to have a negative CT scan of the head but was noted to have acute kidney injury which responded well to IV fluids. He has lactic acid was also initially elevated but had returned to a normal value with rehydration. Patient's mental status was noted to be at his baseline however he continued to feel "wobbly" when he sat up or stood up. He was subsequently admitted to the hospital on observation status for further evaluation and treatment. Hospital Course Hospital Course: Patient was thought to have an altered mental status initial presentation but this quickly cleared while in hospital. Because of his unsteady gait there was a possible diagnosis of labyrinthitis. There was no evidence of any infection. MRI and CT scan of the brain done revealed no evidence of any acute infection. Patient was hemodynamically stable. His blood sugar was noted to be somewhat low to borderline and so his insulin was held while in hospital. His home basal dose has been decreased at discharge but will suggest outpatient follow-up for reevaluation. Patient was seen by physical therapy and was noted that he was able to ambulate although needed help with ambulation. Family was concerned about patient's declining memory issues. I suggest outpatient follow-up and possible referral to neurology if needed however no acute etiology for this has been found Physical Exam Vital Signs: Temp Pulse Resp BP Pulse Ox 97.6 F 112 H 18 118/78 97 05/18/19 08:55 05/18/19 08:55 05/18/19 08:55 05/18/19 08:55 05/18/19 08:55 Intake & Output 05/17/19 05/18/19 05/19/19 06:59 06:59 06:59 Intake Total 2801 1470 Output Total 1300 Balance 1501 1470 Weight 73.3 kg 73.5 kg General appearance: PRESENT: no acute distress Head exam: PRESENT: atraumatic Eye exam: PRESENT: PERRLA Neck exam: PRESENT: full ROM. ABSENT: JVD Respiratory exam: PRESENT: clear to auscultation abdulaziz, unlabored. ABSENT: accessory muscle use, tachypnea Cardiovascular exam: PRESENT: RRR, +S1, +S2 GI/Abdominal exam: PRESENT: soft. ABSENT: tenderness Rectal exam: PRESENT: deferred Extremities exam: ABSENT: calf tenderness Musculoskeletal exam: PRESENT: ambulatory, full ROM Neurological exam: PRESENT: alert, awake, oriented to person, oriented to time, oriented to situation, other - unsteady Results Laboratory Results: WBC 7.3 10^3/uL (4.0-10.5) 05/17/19 04:03 RBC 3.24 10^6/uL (4.35-5.55) L 05/17/19 04:03 Hgb 9.3 g/dL (13.5-17.0) L 05/17/19 04:03 Hct 27.9 % (37.9-51.0) L 05/17/19 04:03 MCV 86 fl (80-97) 05/17/19 04:03 MCH 28.8 pg (27.0-33.4) 05/17/19 04:03 MCHC 33.5 g/dL (32.0-36.0) 05/17/19 04:03 RDW 14.4 % (11.5-14.0) H 05/17/19 04:03 Plt Count 311 10^3/uL (150-450) 05/17/19 04:03 Lymph % (Auto) 19.8 % (13-45) 05/15/19 20:35 Richardson % (Auto) 8.0 % (3-13) 05/15/19 20:35 Eos % (Auto) 2.3 % (0-6) 05/15/19 20:35 Baso % (Auto) 1.1 % (0-2) 05/15/19 20:35 Absolute Neuts (auto) 4.9 10^3/uL (1.7-8.2) 05/15/19 20:35 Absolute Lymphs (auto) 1.4 10^3/uL (0.5-4.7) 05/15/19 20:35 Absolute Monos (auto) 0.6 10^3/uL (0.1-1.4) 05/15/19 20:35 Absolute Eos (auto) 0.2 10^3/uL (0.0-0.6) 05/15/19 20:35 Absolute Basos (auto) 0.1 10^3/uL (0.0-0.2) 05/15/19 20:35 Seg Neutrophils % 68.8 % (42-78) 05/15/19 20:35 PT 13.9 SEC (11.4-15.4) 05/15/19 20:35 INR 1.07 05/15/19 20:35 VBG pH 7.34 (7.30-7.42) 05/15/19 20:35 VBG pCO2 46.0 mmHg (35-63) 05/15/19 20:35 VBG HCO3 24.0 mmol/L (20-32) 05/15/19 20:35 VBG Base Excess -2.1 mmol/L 05/15/19 20:35 Sodium 139.8 mmol/L (137-145) 05/17/19 04:03 Potassium 4.0 mmol/L (3.6-5.0) 05/17/19 04:03 Chloride 107 mmol/L (98-107) 05/17/19 04:03 Carbon Dioxide 24 mmol/L (22-30) 05/17/19 04:03 Anion Gap 9 (5-19) 05/17/19 04:03 BUN 14 mg/dL (7-20) 05/17/19 04:03 Creatinine 1.09 mg/dL (0.52-1.25) 05/17/19 04:03 Est GFR ( Amer) > 60 (>60) 05/17/19 04:03 Est GFR (MDRD) Non-Af > 60 (>60) 05/17/19 04:03 Glucose 89 mg/dL (75-110) 05/17/19 04:03 POC Glucose 197 mg/dL (70-110) H 05/18/19 11:42 Hemoglobin A1c % 9.2 % (4.7-6.0) H 05/17/19 04:03 Lactic Acid 2.1 mmol/L (0.7-2.1) 05/16/19 02:50 Calcium 8.6 mg/dL (8.4-10.2) 05/17/19 04:03 Magnesium 1.3 mg/dL (1.6-2.3) L 05/17/19 04:03 Total Bilirubin 0.2 mg/dL (0.2-1.3) 05/16/19 02:50 Direct Bilirubin 0.1 mg/dL (0.0-0.4) 05/16/19 02:50 Neonat Total Bilirubin Not Reportable 05/16/19 02:50 Neonat Direct Bilirubin Not Reportable 05/16/19 02:50 Neonat Indirect Bili Not Reportable 05/16/19 02:50 AST 22 U/L (17-59) 05/16/19 02:50 ALT 16 U/L (<50) 05/16/19 02:50 Alkaline Phosphatase 104 U/L (38-126) 05/16/19 02:50 Total Protein 5.8 g/dL (6.3-8.2) L 05/16/19 02:50 Albumin 3.3 g/dL (3.5-5.0) L 05/16/19 02:50 Triglycerides 194 mg/dL (<150) H 05/17/19 04:03 Cholesterol 137.99 mg/dL (0-200) 05/17/19 04:03 LDL Cholesterol Direct 57 mg/dL (<100) 05/17/19 04:03 VLDL Cholesterol 38.8 mg/dL (10-31) H 05/17/19 04:03 HDL Cholesterol 64 mg/dL (>40) 05/17/19 04:03 TSH 1.18 uIU/mL (0.47-4.68) 05/17/19 04:03 Urine Color YELLOW 05/15/19 21:00 Urine Appearance SLIGHTLY-CLOUDY 05/15/19 21:00 Urine pH 5.0 (5.0-9.0) 05/15/19 21:00 Ur Specific [place] 1.017 05/15/19 21:00 Urine Protein 100 mg/dL (NEGATIVE) H 05/15/19 21:00 Urine Glucose (UA) NEGATIVE mg/dL (NEGATIVE) 05/15/19 21:00 Urine Ketones NEGATIVE mg/dL (NEGATIVE) 05/15/19 21:00 Urine Blood NEGATIVE (NEGATIVE) 05/15/19 21:00 Urine Nitrite (Reflex) NEGATIVE (NEGATIVE) 05/15/19 21:00 Urine Bilirubin NEGATIVE (NEGATIVE) 05/15/19 21:00 Urine Urobilinogen NEGATIVE mg/dL (<2.0) 05/15/19 21:00 Leukocyte Esterase Rfl TRACE (NEGATIVE) H 05/15/19 21:00 Urine RBC (Auto) 3 /HPF 05/15/19 21:00 U Hyaline Cast (Auto) 29 /LPF 05/15/19 21:00 Urine WBC (Reflex) 7 /HPF 05/15/19 21:00 Squamous Epi Cells Auto 1 /HPF 05/15/19 21:00 Urine Mucus (Auto) RARE /LPF 05/15/19 21:00 Urine Ascorbic Acid NEGATIVE (NEGATIVE) 05/15/19 21:00 Impressions: Chest X-Ray 05/15/19 00:00 IMPRESSION: No active intrathoracic disease copyright 2010 [employer]- All Rights Reserved Head CT 05/15/19 00:00 IMPRESSION: No acute intracranial findings are seen. Please note that MRI is more sensitive for the evaluation of early infarction, and may be performed if there is high clinical concern. Head MRI 05/16/19 00:00 IMPRESSION: 1. Chronic appearing changes. 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 2. No acute infarct or other acute abnormality allowing for limiting motion. EVIDENCE OF ACUTE STROKE: NO. Plan Health Concerns: Recommend outpatient follow-up with neurology for further evaluation of memory loss and unsteady gait Time Spent: Greater than 30 Minutes Stroke Is this a Stroke Patient?: No Acute Heart Failure - Is this a Heart Failure Patient?: No
[2019-05-18 12:44] VITALS: BP 130/73
== END 2019-05-18 14:51 | disposition home health service (06) ==
LOC: ER 19:25 → EH 05-16 04:34 → 5 05-16 16:16
PROVIDERS: ADMIT Emergency Medicine; ATTEND Emergency Medicine
DX: E11.51 Type 2 diabetes mellitus with diabetic peripheral angiopathy without gangrene (principal); E78.5 Hyperlipidemia, unspecified; I10 Essential (primary) hypertension; N17.9 Acute kidney failure, unspecified; R26.81 Unsteadiness on feet; H55.00 Unspecified nystagmus; R41.82 Altered mental status, unspecified; E86.0 Dehydration; R47.81 Slurred speech; F17.200 Nicotine dependence, unspecified, uncomplicated; F32.9 Major depressive disorder, single episode, unspecified; R41.3 Other amnesia; Z79.82 Long term (current) use of aspirin; Z79.899 Other long term (current) drug therapy; Z79.84 Long term (current) use of oral hypoglycemic drugs
CPT/HCPCS: 93005; 99285; 96360; 96361; 36415 ×3; 87040; 87086; 82962 ×4; 83605 ×2; 83735; 84443; 85025; 85027; 85610; 80048; 80053 ×2; 81001; 83036; 82803; 80061; 70551; 71045; 70450; 93010; 97530; 97162; A9270 ×37; J1644 ×3; J0360 ×2; J2060; J3490 ×3; J7030; J7120; G0378; J1815